=== PATIENT | male | born 1980 | race African-American/Black ===

== ENCOUNTER → 2017-04-16 | Outpatient (CLI) | payer BC ==
--- NOTE | 2017-04-16 13:30 | CT ---
EXAMINATION TYPE: CT sinus wo con DATE OF EXAM: 04/16/2017 COMPARISON: NONE HISTORY: Chronic sinusitis for years per order. Four Sinus infections this year requiring antibiotics with headaches, cough, sinus pain and drainage and congestion, new symptoms present for last [address] DLP: 675.5 mGycm. Automated Exposure Control for Dose Reduction was Utilized. TECHNIQUE: CT scan of the sinuses is performed without contrast, axial images are obtained, coronal r eformatted images are also reviewed. FINDINGS: There is mild to moderate mucosal thickening involving the left maxillary sinus and more mo derate mucosal thickening involving the right maxillary sinus. There is mild to moderate anterior muc osal thickening in the bilateral sphenoid sinuses. There is 7 mm mucous retention cyst or polyp in th e superior lateral left sphenoid sinus. There is some patchy linear opacity anteriorly in the right s phenoid sinus. There is fairly moderate mucosal thickening in the ethmoid sinuses bilaterally more pr ominent anteriorly. There is mild to moderate mucosal thickening with dependent air-fluid level in th e left frontal sinus. There is mild mucosal thickening in the inferior right frontal sinus The ostiom eatal complex is blocked bilaterally on the coronal images at the antral level due to mucosal thicken ing. Visualized portion of mastoid air cells show no abnormal opacification. The globes are intact bilate rally. Visualized portion of brain parenchyma is unremarkable. IMPRESSION: Acute on chronic paranasal sinus disease as detailed above, obstruction of bilateral osti omeatal complexes is noted.
== END | disposition home or self-care (01) ==
LOC: RADCTMAIN 09:26
PROVIDERS: ATTEND Otolaryngology
DX: J32.8 Other chronic sinusitis (principal); J34.89 Other specified disorders of nose and nasal sinuses
CPT/HCPCS: 70486

== ENCOUNTER → 2018-02-01 | Outpatient (CLI) | payer BC ==
--- NOTE | 2018-02-01 16:01 | CT ---
EXAMINATION TYPE: CT brain wo con DATE OF EXAM: 02/01/2018 COMPARISON: None HISTORY: dizziness, vertigo symptoms CT DLP: 1121 mGycm. Automated Exposure Control for Dose Reduction was Utilized. TECHNIQUE: CT scan of the head is performed without contrast. FINDINGS: There is no acute intracranial hemorrhage, mass effect, or midline shift identified. The ventricles and sulci are within normal limits in size. The globes are intact and the visualized sin uses are clear. IMPRESSION: No acute intracranial hemorrhage, mass effect, or midline shift is seen.
[2018-02-01 16:37] LABS: Basophils % (A) 0 %; Eosinophils # (A) 0.1 k/uL (0-0.7); Eosinophils % (A) 2 %; HCT 49.2 % (39.0-53.0); HGB 16.2 gm/dL (13.0-17.5); Lymphocytes # (A) 1.7 k/uL (1.0-4.8); Lymphocytes % (A) 28 %; MCH 30.3 pg (25.0-35.0); MCHC 32.9 g/dL (31.0-37.0); MCV 92.1 fL (80.0-100.0); Monocytes # (A) 0.3 k/uL (0-1.0); Monocytes % (A) 6 %; Neutrophils # (A) 3.6 k/uL (1.3-7.7); Neutrophils % (A) 62 %; Platelet Count 195 k/uL (150-450); RBC 5.34 m/uL (4.30-5.90); RDW 12.2 % (11.5-15.5); WBC 5.8 k/uL (3.8-10.6)
[2018-02-01 16:49] LABS: ALT 26 U/L (21-72); AST 19 U/L (17-59); Albumin 4.5 g/dL (3.5-5.0); Alkaline Phosphatase 36 U/L (38-126); Amylase 107 U/L (30-110); Anion Gap 8 mmol/L; Blood Urea Nitrogen 17 mg/dL (9-20); Carbon Dioxide 28 mmol/L (22-30); Chloride 106 mmol/L (98-107); Glucose 107 mg/dL (74-99); Lipase 150 U/L (23-300); Potassium 4.2 mmol/L (3.5-5.1); Sodium 142 mmol/L (137-145); Total Bilirubin 0.6 mg/dL (0.2-1.3); Total Protein 7.6 g/dL (6.3-8.2)
== END | disposition home or self-care (01) ==
LOC: RADCTMAIN 15:23
PROVIDERS: ATTEND Nurse Practitioner Family
DX: R42 Dizziness and giddiness (principal); R11.2 Nausea with vomiting, unspecified
CPT/HCPCS: 70450; 80053; 82150; 83690; 85025

== ENCOUNTER → 2020-11-05 | Outpatient (CLI) | payer BC ==
--- NOTE | 2020-11-05 09:56 | US ---
EXAMINATION TYPE: US abdomen limited DATE OF EXAM: 11/05/2020 COMPARISON: CT CLINICAL HISTORY: Z83.79 Family history of other diseases. Patient stated father passed this year fro m pancreatic cancer. EXAM MEASUREMENTS: Liver Length: 13.6 cm Gallbladder Wall: 0.2 cm CBD: 0.2 cm Right Kidney: 8.7 x 6.1 x 3.6 cm Pancreas: Portion of the head of the pancreas may be obscured by bowel gas. There is some limitation table of the pancreas. Liver: wnl Gallbladder: wnl Evidence for sonographic Richard's sign: no CBD: wnl Right Kidney: wnl IMPRESSION: 1. Right upper quadrant ultrasound unremarkable as visualized
== END | disposition home or self-care (01) ==
LOC: RADUSWWP 08:16
PROVIDERS: ATTEND Family Medicine
DX: Z00.00 Encounter for general adult medical examination without abnormal findings (principal); Z83.79 Family history of other diseases of the digestive system
CPT/HCPCS: 76705